=== PATIENT | female | born 1965 | race Caucasian/White ===

== ENCOUNTER 2021-10-31 16:00 | Inpatient (IN) | payer MEDICAID ==
[2021-10-31] MEDS ORDERED: risperiDONE 3 MG TAB PO SCH (22:00)
[2021-10-31] MEDS ORDERED: clonazePAM 0.5 MG TAB PO ONE (22:00)
[2021-10-31] MEDS: busPIRone 10 MG TAB PO SCH (22:17)
[2021-11-01] MEDS: NICOTINE 21 MG/24 HR PATCH TD SCH (10:00)
--- NOTE | 2021-11-01 11:19 | Consultation ---
History of Present Illness - Reason for Consult Consult date: 11/01/21 Medical Management Requesting physician: MICHELLE CARTER - History of Present Illness 55 YO Female with COPD, HTN, GERD, Nicotine Dependence, MING, Schizophrenia, Anemia Chronic Disease admitted to [facility] for psychiatric stabilization. Patient seen and evaluated in the recreation room. Patient denies fever, chills, chest pain, palpitation, skin rash, recent contact, known exposure to COVID-19. No reported nursing events. Patient denies pain. Past History Past Medical History: COPD, hypertension, other (See HPI) Past Surgical History: , hysterectomy Social history: single, smoking. denies: alcohol abuse, prescription drug abuse Family history: hypertension Medications and Allergies Allergies Allergy/AdvReac Type Severity Reaction Status Date / Time amoxicillin Allergy Intermediate Hives Verified 11/01/21 03:28 Home Medications Medication Instructions Recorded Confirmed Last Taken Type Escitalopram [Lexapro] 10 mg PO DAILY 10/31/21 10/31/21 Unknown History Nicotine [Habitrol] 21 mg TD DAILY 10/31/21 10/31/21 Unknown History Pantoprazole [Protonix] 40 mg PO QDAY 10/31/21 10/31/21 Unknown History Polyethylene Glycol 3350 [Miralax] 119 gm PO DAILY PRN 10/31/21 10/31/21 Unknown History busPIRone [Buspar] 10 mg PO BID 10/31/21 10/31/21 Unknown History risperiDONE [RisperDAL] 2 mg PO HS 11/01/21 11/01/21 Unknown History Active Meds: Active Medications Buspirone HCl (Buspirone 10 Mg Tab) 10 mg PO BID [facility] Last Admin: 10/31/21 22:17 Dose: 10 mg Nicotine (Nicotine 21 Mg/24 Hr Patch) 21 mg TD QDAY [facility] Review of Systems Constitutional: no weight loss, no weight gain, no fever, no chills Ears, nose, mouth and throat: no ear pain, no tinnitis, no nose pain, no nasal congestion Breasts: no change in shape, no swelling, no mass Cardiovascular: no chest pain, no palpitations, no rapid/irregular heart beat, no lightheadedness Respiratory: no cough, no excessive sputum, no hemoptysis, no shortness of breath Gastrointestinal: no abdominal pain, no vomiting, no constipation, no change in bowel habits, no hematemesis Genitourinary Female: no pelvic pain, no flank pain, no dysuria, no urinary frequency, no urgency Rectal: no pain, no incontinence, no bleeding Musculoskeletal: no neck stiffness, no neck pain, no shooting arm pain, no low back pain, no shooting leg pain Integumentary: no rash, no pruritis, no redness, no jaundice Neurological: no head injury, no paralysis, no parathesias, no tingling, no seizures, no syncope Psychiatric: anxiety, difficulties concentrating, irritability, mood swings Endocrine: no cold intolerance, no heat intolerance, no polyphagia, no polydipsia, no nocturia Hematologic/Lymphatic: no easy bruising, no easy bleeding Allergic/Immunologic: no urticaria, no allergic rhinitis, no wheezing Exam - Constitutional Vitals: Temp Pulse Resp BP Pulse Ox 97.4 F L 97 H 17 114/55 98 10/31/21 20:25 10/31/21 20:25 10/31/21 20:25 10/31/21 20:25 10/31/21 20:25 General appearance: Present: no acute distress, well-nourished - EENT Eyes: Present: PERRL ENT: hearing intact, clear oral mucosa - Neck Neck: Present: supple, normal ROM - Respiratory Respiratory effort: normal Respiratory: bilateral: CTA - Cardiovascular Heart Sounds: Present: S1 & S2. Absent: rub, click - Extremities Extremities: pulses symmetrical, No edema Peripheral Pulses: within normal limits - Abdominal General gastrointestinal: Present: soft, non-tender, non-distended, normal bowel sounds Female genitourinary: Present: normal - Integumentary Integumentary: Present: clear, warm, dry - Musculoskeletal Musculoskeletal: gait normal, strength equal bilaterally - Psychiatric Psychiatric: appropriate mood/affect, intact judgment & insight - Neurologic Neurologic: CNII-XII intact, moves all extremities Results - Labs CBC & Chem 7: 11/01/21 23:30 11/01/21 23:30 Assessment and Plan - Patient Problems (1) COPD (chronic obstructive pulmonary disease) Current Visit: Yes Status: Acute Plan to address problem: Supportive care, smoking cessation, no acute exacerbation at this time. Supplemental oxygen as clinically indicated. Patient is currently maintaining pulse oximetry in the 90s on room air and is not in need of supplemental oxygen. (2) Schizophrenia Current Visit: Yes Status: Acute Qualifiers: Schizophrenia type: unspecified Qualified Code(s): F20.9 - Schizophrenia, unspecified Plan to address problem: Continue medical management. Supportive care. (3) Anxiety Current Visit: Yes Status: Acute Plan to address problem: Benzodiazepine therapy as clinically indicated. (4) Hypertension Current Visit: Yes Status: Acute Qualifiers: Hypertension type: primary hypertension Qualified Code(s): I10 - Essential (primary) hypertension Plan to address problem: Monitor blood pressure every shift, continue medical management (5) GERD (gastroesophageal reflux disease) Current Visit: Yes Status: Acute Qualifiers: Esophagitis presence: without esophagitis Qualified Code(s): K21.9 - Gastro-esophageal reflux disease without esophagitis Plan to address problem: PPI therapy, supportive care. (6) Advance care planning Current Visit: Yes Status: Acute Plan to address problem: Disease education done, care plan discussed, diagnoses discussed, prognosis discussed, patient is full code. Patient acknowledges understanding agreement with care plan, +30 minutes
[2021-11-01] MEDS ORDERED: POLYETHYLENE GLYCOL 119 GM PO PRN (11:20)
[2021-11-01] MEDS ORDERED: POLYETHYLENE GLYCOL 3350 17 GM POWDER PO PRN (11:39)
--- NOTE | 2021-11-01 13:11 | History and Physical Report ---
GP History & Physical - History of Present Illness Date of admission: 10/31/21 Date of Examination: 11/01/21 Reason for Admission: Danger to self, Failure of Outpatient Treatment, Severe anxiety/depression History of Present Illness: HPI: 55 YO Female with COPD, HTN, GERD, MING, Schizophrenia, Anemia Chronic Disease admitted to [facility] for psychiatric stabilization. Patient seen and evaluated in the recreation room. Patient denies fever, chills, chest pain, palpitation, skin rash, recent contact, known exposure to COVID-19. No reported nursing events. Patient denies pain. The patient was seen today. She is pacing in her room. She tells me that she is having a panic attack and needs her klonopin. The nurse says it was not verified that the patient takes klonopin. The patient says she was admitted into the hospital for hearing voices. I ask her were the voices saying anything negative or harmful, she replies "all kinds of stuff." The patient verbalizes feeling depressed but denies SI/HI. She denies any illicit drug use, alcohol or nicotine. Although her urine was positive for illicit substances. PAST PSYCHIATRIC HISTORY Diagnoses: Denies Suicide attempts or Self-harm behavior: Denies Prior psychiatric hospitalizations: Denies Substance Abuse history: Denies Previous psychiatric medications tried: Denies Outpatient treatment: Denies PAST MEDICAL HISTORY: None reported Family Psychiatric History: None reported or documented SOCIAL HISTORY Living arrangement: states she lives alone Marital status: Single REVIEW OF SYSTEMS Constitutional: Negative for weight loss ENT: Negative for stridor Respiratory: Negative for cough or hemoptysis All other systems reviewed and are negative MENTAL STATUS EXAMINATION General Appearance and Behavior: Age appropriate, good hygiene, wearing appropriate clothes, good eye contact, calm, cooperative Cooperation: Participating/engaged, but Guarded Psychomotor Behavior: Psychomotor normal Mood: Depressed, anxious Affect and affective range: congruent with stated mood Thought Process: circumstantial Thought Content: hallucinations Speech: normal tone and pace Suicidal Ideation: Denies Homicidal Ideation: Denies Hallucinations: Auditory Delusions: None elicited Impulse Control: Limited Insight and Judgment: Limited insight and judgment Memory: Limited Attention: Divided Orientation: Alert, oriented Assessment and Plan Schizophrenia Treatment Plan Patient admitted for inpatient psychiatric evaluation, medication adjustment and close monitoring The patient's behavior, mood, sleep and appetite will be closely monitored. Patient enrolled in individual and group therapeutic sessions and encouraged to attend. Patient provided with a safe and structured environment. Patient's physical health needs will be addressed by the Hospitalist. Hospitalist Consulted Labs including CBC, CMP, Lipid profile and Hemoglobin A1C levels ordered for baseline reference Social Assessment will be completed and the Wrecking Crane Engine Operator will work with patient and family to ensure a suitable and safe disposition Medication adjustment will be made as clinically indicated Restart home meds Increase Buspar 15mg po BID Start Vistaril 50mg po TID Start Doxepoin 10mg po qhs Start Olanzapine 5mg po dailu Usual Wellness Denominational/Preservation The patient agreed on the treatment plan, understood the risk, benefit, alternative treatment, potential consequence of no treatment, and gave informed consent. Estimated days: 7 Post hospital care: primary care provider, psychiatric provider Case staffed with Dr. Knox Legal Status: Voluntary Patient Problems: Current Active Problems Advance care planning (Acute) Anxiety (Acute) COPD (chronic obstructive pulmonary disease) (Acute) Hypertension (Acute) Schizophrenia (Acute) Reaction to Hospitalization: Accepting Medications and Allergies Allergies Allergy/AdvReac Type Severity Reaction Status Date / Time amoxicillin Allergy Intermediate Hives Verified 11/01/21 03:28 Home Medications Medication Instructions Recorded Confirmed Last Taken Type Escitalopram [Lexapro] 10 mg PO DAILY 10/31/21 10/31/21 Unknown History Nicotine [Habitrol] 21 mg TD DAILY 10/31/21 10/31/21 Unknown History Pantoprazole [Protonix] 40 mg PO QDAY 10/31/21 10/31/21 Unknown History Polyethylene Glycol 3350 [Miralax] 119 gm PO DAILY PRN 10/31/21 10/31/21 Unknown History busPIRone [Buspar] 10 mg PO BID 10/31/21 10/31/21 Unknown History risperiDONE [RisperDAL] 2 mg PO HS 11/01/21 11/01/21 Unknown History Active Meds: Active Medications Buspirone HCl (Buspirone 10 Mg Tab) 10 mg PO BID [facility] Last Admin: 10/31/21 22:17 Dose: 10 mg Nicotine (Nicotine 21 Mg/24 Hr Patch) 21 mg TD QDAY [facility] Pantoprazole Sodium (Pantoprazole 40 Mg Tab) 40 mg PO QDAY [facility] Polyethylene Glycol (Polyethylene Glycol 3350 17 Gm Powder) 17 gm PO QDAY PRN PRN Reason: Constipation Results - Results Labs/Vitals: Last Vital Signs Temp 97.4 F L 10/31/21 20:25 Pulse 97 H 10/31/21 20:25 Resp 17 10/31/21 20:25 BP 114/55 10/31/21 20:25 Pulse Ox 98 10/31/21 20:25 Physical Examination - Constitutional Vitals: Vital Signs Temp Pulse Resp BP Pulse Ox 97.4 F L 97 H 17 114/55 98 10/31/21 20:25 10/31/21 20:25 10/31/21 20:25 10/31/21 20:25 10/31/21 20:25 Temperature -Last 24 Hours Temperature 97.4 F Mental Status Exam - Vital signs Last Vital Signs Temp 97.4 F L 10/31/21 20:25 Pulse 97 H 10/31/21 20:25 Resp 17 10/31/21 20:25 BP 114/55 10/31/21 20:25 Pulse Ox 98 10/31/21 20:25 Physician Certification - Certification Statement Physician Certification Statement: This is an acknowledgement statement that BENITO KOROMA is a 55 year old F who requires inpatient psychiatric admission for treatment which could reasonably be expected to improve the patient's condition for Estimated period of time patient will need to remain in the hospital: [ ] Plan for post-hospital care: [ ]
[2021-11-01] MEDS: ESCITALOPRAM 10 MG TAB PO SCH (15:11)
[2021-11-01] MEDS: busPIRone 10 MG TAB PO SCH ×2 (15:14→21:23)
[2021-11-01] MEDS ORDERED: DOXEPIN 10 MG CAP PO SCH (22:00)
[2021-11-02 00:36] LABS: Basophils % (Auto) 0.8 % (0.0-1.8); Eosinophils # (Auto) 0.2 K/mm3 (0.0-0.4); Hematocrit 34.1 % (30.3-42.9); Hemoglobin 11.5 gm/dl (10.1-14.3); Lymphocytes # (Auto) 1.7 K/mm3 (1.2-5.4); Lymphocytes % (Auto) 31.7 % (13.4-35.0); Mean Corpuscular HGB Conc 34 % (30-34); Mean Corpuscular Volume 89 fl (79-97); Monocytes # (Auto) 0.4 K/mm3 (0.0-0.8); Platelet Count 203 K/mm3 (140-440); Red Blood Count 3.81 M/mm3 (3.65-5.03); Red Cell Distribution Width 12.7 % (13.2-15.2)
[2021-11-02 01:02] LABS: Hepatitis B Surface Antigen Non-Reactive (Negative); Hepatitis C Virus Antibody Non-Reactive (NonReactive)
[2021-11-02 03:16] LABS: Alanine Aminotransferase 12 units/L (7-56); Albumin 4.4 g/dL (3.9-5); BUN/Creatinine Ratio 38; Blood Urea Nitrogen 34 mg/dL (7-17); Calcium 9.8 mg/dL (8.4-10.2); Chol/HDL Ratio 3.54 %; HDL Cholesterol 51 mg/dL (40-59); Hemolysis Index 7; LDL Cholesterol,Direct 119 mg/dL (50-130)
[2021-11-02] MEDS: PANTOPRAZOLE 40 MG TAB PO SCH (09:04)
[2021-11-02] MEDS: busPIRone 10 MG TAB PO SCH ×2 (09:05→21:24)
[2021-11-02] MEDS: NICOTINE 21 MG/24 HR PATCH TD SCH (09:05)
[2021-11-02] MEDS: ESCITALOPRAM 10 MG TAB PO SCH (09:05)
--- NOTE | 2021-11-02 09:48 | Progress Note ---
Subjective Date of service: 11/02/21 Subjective Comment: 11/02/21: The patient seen at breakfast. She is calm and oriented x3. The patient complains of difficulty sleeping stating she feels tired and drained. She denies any current suicidal/homicidal ideation and denies hallucinations. PAST PSYCHIATRIC HISTORY Diagnoses: Denies Suicide attempts or Self-harm behavior: Denies Prior psychiatric hospitalizations: Denies Substance Abuse history: Denies Previous psychiatric medications tried: Denies Outpatient treatment: Denies PAST MEDICAL HISTORY: None reported Family Psychiatric History: None reported or documented SOCIAL HISTORY Living arrangement: states she lives alone Marital status: Single REVIEW OF SYSTEMS Constitutional: Negative for weight loss ENT: Negative for stridor Respiratory: Negative for cough or hemoptysis All other systems reviewed and are negative MENTAL STATUS EXAMINATION General Appearance and Behavior: Age appropriate, good hygiene, wearing appropriate clothes, good eye contact, calm, cooperative Cooperation: Participating/engaged, but Guarded Psychomotor Behavior: Psychomotor normal Mood: Depressed Affect and affective range: congruent with stated mood Thought Process: Goal directed Thought Content: Reality oriented Speech: normal tone and pace Suicidal Ideation: Denies Homicidal Ideation: Denies Hallucinations: Denies Delusions: None elicited Impulse Control: Limited Insight and Judgment: Limited insight and judgment Memory: Limited Attention: Divided Orientation: Alert, orientedx3 Assessment and Plan Schizophrenia Treatment Plan Patient admitted for inpatient psychiatric evaluation, medication adjustment and close monitoring The patient's behavior, mood, sleep and appetite will be closely monitored. Patient enrolled in individual and group therapeutic sessions and encouraged to attend. Patient provided with a safe and structured environment. Patient's physical health needs will be addressed by the Hospitalist. Hospitalist Consulted Labs including CBC, CMP, Lipid profile and Hemoglobin A1C levels ordered for baseline reference Social Assessment will be completed and the Furniture Maker will work with patient and family to ensure a suitable and safe disposition Medication adjustment will be made as clinically indicated Restart home meds Start Remeron 15mg po QHS Continue Buspar 15mg po BID continue Vistaril 50mg po TID Continue Olanzapine 5mg po daily Usual Wellness Islam/Preservation The patient agreed on the treatment plan, understood the risk, benefit, alternative treatment, potential consequence of no treatment, and gave informed consent. Estimated days: 6 Post hospital care: primary care provider, psychiatric provider Case staffed with Dr. Knox Legal Status: Voluntary Patient Problems: Current Active Problems Advance care planning (Acute) Anxiety (Acute) COPD (chronic obstructive pulmonary disease) (Acute) Hypertension (Acute) Schizophrenia (Acute) Reaction to Hospitalization: Accepting Medications and Allergies Medications and Allergies Allergies Allergy/AdvReac Type Severity Reaction Status Date / Time amoxicillin Allergy Intermediate Hives Verified 11/01/21 03:28 Home Medications Medication Instructions Recorded Confirmed Last Taken Type Escitalopram [Lexapro] 10 mg PO DAILY 10/31/21 10/31/21 Unknown History Nicotine [Habitrol] 21 mg TD DAILY 10/31/21 10/31/21 Unknown History Pantoprazole [Protonix] 40 mg PO QDAY 10/31/21 10/31/21 Unknown History Polyethylene Glycol 3350 [Miralax] 119 gm PO DAILY PRN 10/31/21 10/31/21 Unknown History busPIRone [Buspar] 10 mg PO BID 10/31/21 10/31/21 Unknown History risperiDONE [RisperDAL] 2 mg PO HS 11/01/21 11/01/21 Unknown History Active Meds: Active Medications Buspirone HCl (Buspirone 10 Mg Tab) 15 mg PO BID [facility] Last Admin: 11/02/21 09:05 Dose: 15 mg Doxepin HCl (Doxepin 10 Mg Cap) 10 mg PO QHS [facility] Last Admin: 11/01/21 21:24 Dose: 10 mg Escitalopram Oxalate (Escitalopram 10 Mg Tab) 10 mg PO DAILY [facility] Last Admin: 11/02/21 09:05 Dose: 10 mg Hydroxyzine Pamoate (Hydroxyzine Pamoate 50 Mg Cap) 50 mg PO TID PRN PRN Reason: Anxiety Last Admin: 11/01/21 23:32 Dose: 50 mg Melatonin (Melatonin 5 Mg Tab) 5 mg PO QHS PRN PRN Reason: Sleep Nicotine (Nicotine 21 Mg/24 Hr Patch) 21 mg TD QDAY [facility] Last Admin: 11/02/21 09:05 Dose: 21 mg Olanzapine (Olanzapine 5 Mg Tab) 5 mg PO QDAY [facility] Last Admin: 11/02/21 09:04 Dose: 5 mg Pantoprazole Sodium (Pantoprazole 40 Mg Tab) 40 mg PO QDAY [facility] Last Admin: 11/02/21 09:04 Dose: 40 mg Polyethylene Glycol (Polyethylene Glycol 3350 17 Gm Powder) 17 gm PO QDAY PRN PRN Reason: Constipation Results - Results Labs/Vitals: Laboratory Last Values WBC 5.4 K/mm3 (4.5-11.0) 11/01/21: RBC 3.81 M/mm3 (3.65-5.03) 11/01/21: Hgb 11.5 gm/dl (10.1-14.3) 11/01/21: Hct 34.1 % (30.3-42.9) 11/01/21: MCV 89 fl (79-97) 11/01/21: MCH 30 pg (28-32) 11/01/21: MCHC 34 % (30-34) 11/01/21: RDW 12.7 % (13.2-15.2) L 11/01/21: Plt Count 203 K/mm3 (140-440) 11/01/21: Lymph % (Auto) 31.7 % (13.4-35.0) 11/01/21: Cata[place] % (Auto) 7.0 % (0.0-7.3) 11/01/21: Eos % (Auto) 3.0 % (0.0-4.3) 11/01/21: Baso % (Auto) 0.8 % (0.0-1.8) 11/01/21 Lymph # (Auto) 1.7 K/mm3 (1.2-5.4) 11/01/21: Cata[place] # (Auto) 0.4 K/mm3 (0.0-0.8) 11/01/21: Eos # (Auto) 0.2 K/mm3 (0.0-0.4) 11/01/21: Baso # (Auto) 0.0 K/mm3 (0.0-0.1) 11/01/21: Seg Neutrophils % 57.5 % (40.0-70.0) 11/01/21: Seg Neutrophils # 3.1 K/mm3 (1.8-7.7) 11/01/21: Sodium 140 mmol/L (137-145) 11/01/21: Potassium 4.6 mmol/L (3.6-5.0) 11/01/21: Chloride 101.5 mmol/L (98-107) 11/01/21 23: Carbon Dioxide 24 mmol/L (22-30) 11/01/21 23: Anion Gap 19 mmol/L 11/01/21 23:30 BUN 34 mg/dL (7-17) H 11/01/21 23: Creatinine 0.9 mg/dL (0.6-1.2) 11/01/21: Estimated GFR > 60 ml/min 11/01/21: BUN/Creatinine Ratio 38 % 11/01/21: Glucose 103 mg/dL (65-100) H 11/01/21 23: Hemoglobin A1c 5.4 % (4-6) 11/01/21: Calcium 9.8 mg/dL (8.4-10.2) 11/01/21: Total Bilirubin 0.20 mg/dL (0.1-1.2) 11/01/21: AST 18 units/L (5-40) 11/01/21: ALT 12 units/L (7-56) 11/01/21: Alkaline Phosphatase 31 units/L (35-129) L 11/01/21: Total Protein 6.6 g/dL (6.3-8.2) 11/01/21: Albumin 4.4 g/dL (3.9-5) 11/01/21: Albumin/Globulin Ratio 2.0 % 11/01/21: Triglycerides 98 mg/dL (2-149) 11/01/21: Cholesterol 181 mg/dL (50-199) 11/01/21: LDL Cholesterol Direct 119 mg/dL (50-130) 11/01/21: HDL Cholesterol 51 mg/dL (40-59) 11/01/21: Cholesterol/HDL Ratio 3.54 % 11/01/21: TSH 0.147 mlU/mL (0.270-4.200) L 11/01/21: Hepatitis A IgM Ab Non-reactive (NonReactive) 11/01/21 Hep Bs Antigen Non-reactive (Negative) 11/01/21 Hep B Core IgM Ab Non-reactive (NonReactive) 03/17/22 23:30 Hepatitis C Antibody Non-reactive (NonReactive) 11/01/21 23:30 Last Vital Signs Temp 99.7 F H 11/01/21 19:36 Pulse 103 H 11/01/21 19:36 Resp 20 11/01/21 19:36 BP 98/68 11/01/21 19:36 Pulse Ox 98 11/01/21 19:36
[2021-11-02] MEDS ORDERED: NICOTINE 21 MG/24 HR PATCH TD SCH (10:00)
--- NOTE | 2021-11-02 20:59 | Progress Note ---
Assessment and Plan - Patient Problems (1) COPD (chronic obstructive pulmonary disease) Current Visit: Yes Status: Acute Plan to address problem: Supportive care, smoking cessation, no acute exacerbation at this time. Supplemental oxygen as clinically indicated. Patient is currently maintaining pulse oximetry in the 90s on room air and is not in need of supplemental oxygen. (2) Schizophrenia Current Visit: Yes Status: Acute Qualifiers: Schizophrenia type: unspecified Qualified Code(s): F20.9 - Schizophrenia, unspecified Plan to address problem: Continue medical management. Supportive care. (3) Anxiety Current Visit: Yes Status: Acute Plan to address problem: Benzodiazepine therapy as clinically indicated. (4) Hypertension Current Visit: Yes Status: Acute Qualifiers: Hypertension type: primary hypertension Qualified Code(s): I10 - Essential (primary) hypertension Plan to address problem: Monitor blood pressure every shift, continue medical management (5) GERD (gastroesophageal reflux disease) Current Visit: Yes Status: Acute Qualifiers: Esophagitis presence: without esophagitis Qualified Code(s): K21.9 - Gastro-esophageal reflux disease without esophagitis Plan to address problem: PPI therapy, supportive care. (6) Advance care planning Current Visit: Yes Status: Acute Plan to address problem: Disease education done, care plan discussed, diagnoses discussed, prognosis dis cussed, patient is full code. Patient acknowledges understanding agreement with care plan, +30 minutes History Interval history: 55 YO Female with COPD, HTN, GERD, Nicotine Dependence, MING, Schizophrenia, Anemia Chronic Disease admitted to [facility] for psychiatric stabilization. Patient seen and evaluated in the recreation room. No reported nursing events. Patient denies pain. Hospitalist Physical - Constitutional Vitals: Temp Pulse Resp BP Pulse Ox 98.3 F 86 17 113/57 96 11/02/21 19:14 11/02/21 19:14 11/02/21 19:14 11/02/21 19:14 11/02/21 19:14 General appearance: Present: no acute distress, well-nourished - EENT Eyes: Present: PERRL, EOM intact - Neck Neck: Present: supple - Respiratory Respiratory effort: normal Respiratory: bilateral: diminished - Cardiovascular Rhythm: regular Heart Sounds: Present: S1 & S2 - Extremities Extremities: no ischemia Peripheral Pulses: within normal limits - Abdominal General gastrointestinal: soft, non-tender, non-distended - Integumentary Integumentary: Present: clear, dry - Psychiatric Psychiatric: appropriate mood/affect, cooperative - Neurologic Neurologic: CNII-XII intact Results - Labs CBC & Chem 7: 11/01/21 23:30 11/01/21 23: Labs: Laboratory Last Values WBC 5.4 K/mm3 (4.5-11.0) 11/01/21 23: RBC 3.81 M/mm3 (3.65-5.03) 11/01/21: Hgb 11.5 gm/dl (10.1-14.3) 11/01/21: Hct 34.1 % (30.3-42.9) 11/01/21: MCV 89 fl (79-97) 11/01/21: MCH 30 pg (28-32) 11/01/21: MCHC 34 % (30-34) 11/01/21: RDW 12.7 % (13.2-15.2) L 11/01/21: Plt Count 203 K/mm3 (140-440) 11/01/21 23: Lymph % (Auto) 31.7 % (13.4-35.0) 11/01/21 23: [place] % (Auto) 7.0 % (0.0-7.3) 11/01/21: Eos % (Auto) 3.0 % (0.0-4.3) 11/01/21: Baso % (Auto) 0.8 % (0.0-1.8) 11/01/21: Lymph # (Auto) 1.7 K/mm3 (1.2-5.4) 11/01/21: [place] # (Auto) 0.4 K/mm3 (0.0-0.8) 11/01/21: Eos # (Auto) 0.2 K/mm3 (0.0-0.4) 11/01/21: Baso # (Auto) 0.0 K/mm3 (0.0-0.1) 11/01/21 23: Seg Neutrophils % 57.5 % (40.0-70.0) 11/01/21: Seg Neutrophils # 3.1 K/mm3 (1.8-7.7) 11/01/21 23:30 Sodium 140 mmol/L (137-145) 11/01/21 23:30 Potassium 4.6 mmol/L (3.6-5.0) 11/01/21 23: Chloride 101.5 mmol/L (98-107) 11/01/21 23: Carbon Dioxide 24 mmol/L (22-30) 11/01/21: Anion Gap 19 mmol/L 11/01/21 23:30 BUN 34 mg/dL (7-17) H 11/01/21 23:30 Creatinine 0.9 mg/dL (0.6-1.2) 11/01/21 23:30 Estimated GFR > 60 ml/min 11/01/21: BUN/Creatinine Ratio 38 % 11/01/21: Glucose 103 mg/dL (65-100) H 11/01/21 23:30 Hemoglobin A1c 5.4 % (4-6) 11/01/21: Calcium 9.8 mg/dL (8.4-10.2) 11/01/21 23: Total Bilirubin 0.20 mg/dL (0.1-1.2) 11/01/21 23:30 AST 18 units/L (5-40) 11/01/21:30 ALT 12 units/L (7-56) 11/01/21: Alkaline Phosphatase 31 units/L (35-129) L 11/01/21:30 Total Protein 6.6 g/dL (6.3-8.2) 11/01/21: Albumin 4.4 g/dL (3.9-5) 11/01/21 23: Albumin/Globulin Ratio 2.0 % 11/01/21 23:30 Triglycerides 98 mg/dL (2-149) 11/01/21 23:30 Cholesterol 181 mg/dL (50-199) 11/01/21 23:30 LDL Cholesterol Direct 119 mg/dL (50-130) 11/01/21 23:30 HDL Cholesterol 51 mg/dL (40-59) 11/01/21 23:30 Cholesterol/HDL Ratio 3.54 % 11/01/21: TSH 0.147 mlU/mL (0.270-4.200) L 11/01/21 23:30 Hepatitis A IgM Ab Non-reactive (NonReactive) 11/01/21 23:30 Hep Bs Antigen Non-reactive (Negative) 11/01/21 23:30 Hep B Core IgM Ab Non-reactive (NonReactive) 11/01/21 23:30 Hepatitis C Antibody Non-reactive (NonReactive) 11/01/21 23:30 Harris/IV: Voiding Method Toilet Active Medications - Current Medications Current Medications: Generic Name Dose Route Start Last Admin Trade Name Freq PRN Reason Stop Dose Admin Buspirone HCl 15 mg 11/01/21 22:00 11/02/21 09:05 Buspirone 10 Mg Tab PO 15 mg BID GISEL Administration Escitalopram Oxalate 10 mg 11/01/21 14:00 11/02/21 09:05 Escitalopram 10 Mg Tab PO 10 mg DAILY GISEL Administration Hydroxyzine Pamoate 50 mg 11/01/21 13:18 11/01/21 23:32 Hydroxyzine Pamoate 50 Mg Cap PO 50 mg TID PRN Administration Anxiety Melatonin 5 mg 11/01/21 23:20 Melatonin 5 Mg Tab PO QHS PRN Sleep Mirtazapine 15 mg 11/02/21 22:00 Mirtazapine 15 Mg Tab PO QHS GISEL Nicotine 21 mg 11/01/21 10:00 11/02/21 09:05 Nicotine 21 Mg/24 Hr Patch TD 21 mg QDAY GISEL Administration Olanzapine 5 mg 11/01/21 14:00 11/02/21 09:04 Olanzapine 5 Mg Tab PO 5 mg QDAY GISEL Administration Pantoprazole Sodium 40 mg 11/02/21 10:00 11/02/21 09:04 Pantoprazole 40 Mg Tab PO 40 mg QDAY GISEL Administration Polyethylene Glycol 17 gm 11/01/21 11:39 Polyethylene Glycol 3350 17 Gm Powder PO QDAY PRN Constipation
--- NOTE | 2021-11-02 21:01 | Progress Note ---
Assessment and Plan - Patient Problems (1) COPD (chronic obstructive pulmonary disease) Current Visit: Yes Status: Acute Plan to address problem: Supportive care, smoking cessation, no acute exacerbation at this time. Supplemental oxygen as clinically indicated. Patient is currently maintaining pulse oximetry in the 90s on room air and is not in need of supplemental oxygen. (2) Schizophrenia Current Visit: Yes Status: Acute Qualifiers: Schizophrenia type: unspecified Qualified Code(s): F20.9 - Schizophrenia, unspecified Plan to address problem: Continue medical management. Supportive care. (3) Anxiety Current Visit: Yes Status: Acute Plan to address problem: Benzodiazepine therapy as clinically indicated. (4) Hypertension Current Visit: Yes Status: Acute Qualifiers: Hypertension type: primary hypertension Qualified Code(s): I10 - Essential (primary) hypertension Plan to address problem: Monitor blood pressure every shift, continue medical management (5) GERD (gastroesophageal reflux disease) Current Visit: Yes Status: Acute Qualifiers: Esophagitis presence: without esophagitis Qualified Code(s): K21.9 - Gastro-esophageal reflux disease without esophagitis Plan to address problem: PPI therapy, supportive care. (6) Advance care planning Current Visit: Yes Status: Acute Plan to address problem: Disease education done, care plan discussed, diagnoses discussed, prognosis dis cussed, patient is full code. Patient acknowledges understanding agreement with care plan, +30 minutes History Interval history: 55 YO Female with COPD, HTN, GERD, Nicotine Dependence, MING, Schizophrenia, Anemia Chronic Disease admitted to [facility] for psychiatric stabilization. Patient seen and evaluated in the recreation room. No reported nursing events. Patient denies pain. Hospitalist Physical - Constitutional Vitals: Temp Pulse Resp BP Pulse Ox 98.3 F 86 17 113/57 96 11/02/21 19:14 11/02/21 19:14 11/02/21 19:14 11/02/21 19:14 11/02/21 19:14 General appearance: Present: no acute distress, well-nourished - EENT Eyes: Present: PERRL ENT: hearing intact - Neck Neck: Present: supple - Respiratory Respiratory effort: normal Respiratory: bilateral: diminished - Cardiovascular Rhythm: regular Heart Sounds: Present: S1 & S2 - Extremities Extremities: no ischemia Peripheral Pulses: within normal limits - Abdominal General gastrointestinal: non-tender, non-distended - Integumentary Integumentary: Present: clear, dry - Psychiatric Psychiatric: cooperative - Neurologic Neurologic: CNII-XII intact Results - Labs CBC & Chem 7: 11/01/21 23:30 11/01/21 23: Labs: Laboratory Last Values WBC 5.4 K/mm3 (4.5-11.0) 11/01/21 23: RBC 3.81 M/mm3 (3.65-5.03) 11/01/21 23: Hgb 11.5 gm/dl (10.1-14.3) 11/01/21 23: Hct 34.1 % (30.3-42.9) 11/01/21 23: MCV 89 fl (79-97) 11/01/21 23: MCH 30 pg (28-32) 11/01/21: MCHC 34 % (30-34) 11/01/21 23: RDW 12.7 % (13.2-15.2) L 11/01/21: Plt Count 203 K/mm3 (140-440) 11/01/21 23: Lymph % (Auto) 31.7 % (13.4-35.0) 11/01/21 23:30 [place] % (Auto) 7.0 % (0.0-7.3) 11/01/21 23: Eos % (Auto) 3.0 % (0.0-4.3) 11/01/21 23: Baso % (Auto) 0.8 % (0.0-1.8) 11/01/21: Lymph # (Auto) 1.7 K/mm3 (1.2-5.4) 11/01/21 23: [place] # (Auto) 0.4 K/mm3 (0.0-0.8) 11/01/21 23: Eos # (Auto) 0.2 K/mm3 (0.0-0.4) 11/01/21 23: Baso # (Auto) 0.0 K/mm3 (0.0-0.1) 11/01/21 23: Seg Neutrophils % 57.5 % (40.0-70.0) 11/01/21: Seg Neutrophils # 3.1 K/mm3 (1.8-7.7) 11/01/21 23:30 Sodium 140 mmol/L (137-145) 11/01/21 23:30 Potassium 4.6 mmol/L (3.6-5.0) 11/01/21 23: Chloride 101.5 mmol/L (98-107) 11/01/21 23:30 Carbon Dioxide 24 mmol/L (22-30) 11/01/21 23: Anion Gap 19 mmol/L 11/01/21 23:30 BUN 34 mg/dL (7-17) H 11/01/21 23:30 Creatinine 0.9 mg/dL (0.6-1.2) 11/01/21 23:30 Estimated GFR > 60 ml/min 11/01/21 23: BUN/Creatinine Ratio 38 % 11/01/21: Glucose 103 mg/dL (65-100) H 11/01/21 23:30 Hemoglobin A1c 5.4 % (4-6) 11/01/21 23: Calcium 9.8 mg/dL (8.4-10.2) 11/01/21 23: Total Bilirubin 0.20 mg/dL (0.1-1.2) 11/01/21 23:30 AST 18 units/L (5-40) 11/01/21 23:30 ALT 12 units/L (7-56) 11/01/21: Alkaline Phosphatase 31 units/L (35-129) L 11/01/21 23:30 Total Protein 6.6 g/dL (6.3-8.2) 11/01/21: Albumin 4.4 g/dL (3.9-5) 11/01/21: Albumin/Globulin Ratio 2.0 % 11/01/21 23:30 Triglycerides 98 mg/dL (2-149) 11/01/21 23:30 Cholesterol 181 mg/dL (50-199) 11/01/21 23:30 LDL Cholesterol Direct 119 mg/dL (50-130) 11/01/21 23: HDL Cholesterol 51 mg/dL (40-59) 11/01/21 23:30 Cholesterol/HDL Ratio 3.54 % 11/01/21 23:30 TSH 0.147 mlU/mL (0.270-4.200) L 11/01/21 23:30 Hepatitis A IgM Ab Non-reactive (NonReactive) 11/01/21 23:30 Hep Bs Antigen Non-reactive (Negative) 11/01/21 23:30 Hep B Core IgM Ab Non-reactive (NonReactive) 11/01/21 23:30 Hepatitis C Antibody Non-reactive (NonReactive) 11/01/21 23:30 Harris/IV: Voiding Method Toilet Active Medications - Current Medications Current Medications: Generic Name Dose Route Start Last Admin Trade Name Freq PRN Reason Stop Dose Admin Buspirone HCl 15 mg 11/01/21 22:00 11/02/21 09:05 Buspirone 10 Mg Tab PO 15 mg BID GISEL Administration Escitalopram Oxalate 10 mg 11/01/21 14:00 11/02/21 09:05 Escitalopram 10 Mg Tab PO 10 mg DAILY GISEL Administration Hydroxyzine Pamoate 50 mg 11/01/21 13:18 11/01/21 23:32 Hydroxyzine Pamoate 50 Mg Cap PO 50 mg TID PRN Administration Anxiety Melatonin 5 mg 11/01/21 23:20 Melatonin 5 Mg Tab PO QHS PRN Sleep Mirtazapine 15 mg 11/02/21 22:00 Mirtazapine 15 Mg Tab PO QHS GISEL Nicotine 21 mg 11/01/21 10:00 11/02/21 09:05 Nicotine 21 Mg/24 Hr Patch TD 21 mg QDAY GISEL Administration Olanzapine 5 mg 11/01/21 14:00 11/02/21 09:04 Olanzapine 5 Mg Tab PO 5 mg QDAY GISEL Administration Pantoprazole Sodium 40 mg 11/02/21 10:00 11/02/21 09:04 Pantoprazole 40 Mg Tab PO 40 mg QDAY GISEL Administration Polyethylene Glycol 17 gm 11/01/21 11:39 Polyethylene Glycol 3350 17 Gm Powder PO QDAY PRN Constipation
[2021-11-02] MEDS: MIRTAZAPINE 15 MG TAB PO SCH (21:25)
[2021-11-02] MEDS: MELATONIN 5 MG TAB PO PRN (23:17)
--- NOTE | 2021-11-03 08:38 | Progress Note ---
Subjective Date of service: 11/03/21 Subjective Comment: 11/03/21: The patient was sleep and this senior mortgage underwriter woke her up with the patient stating " I did not get no sleep." The patient seems to be drug seeking. She denies any current suicidal/homicidal ideation and denies hallucinations. Per nurse, " Overnight the patient rested quietly. She slept 8 hours." 11/02/21: The patient seen at breakfast. She is calm and oriented x3. The patient complains of difficulty sleeping stating she feels tired and drained. She denies any current suicidal/homicidal ideation and denies hallucinations. PAST PSYCHIATRIC HISTORY Diagnoses: Denies Suicide attempts or Self-harm behavior: Denies Prior psychiatric hospitalizations: Denies Substance Abuse history: Denies Previous psychiatric medications tried: Denies Outpatient treatment: Denies PAST MEDICAL HISTORY: None reported Family Psychiatric History: None reported or documented SOCIAL HISTORY Living arrangement: states she lives alone Marital status: Single REVIEW OF SYSTEMS Constitutional: Negative for weight loss ENT: Negative for stridor Respiratory: Negative for cough or hemoptysis All other systems reviewed and are negative MENTAL STATUS EXAMINATION General Appearance and Behavior: Age appropriate, good hygiene, wearing appropriate clothes, good eye contact, calm, cooperative Cooperation: Participating/engaged, but Guarded Psychomotor Behavior: Psychomotor normal Mood: Depressed Affect and affective range: congruent with stated mood Thought Process: Goal directed Thought Content: Reality oriented Speech: normal tone and pace Suicidal Ideation: Denies Homicidal Ideation: Denies Hallucinations: Denies Delusions: None elicited Impulse Control: Limited Insight and Judgment: Limited insight and judgment Memory: Limited Attention: Divided Orientation: Alert, orientedx3 Assessment and Plan Schizophrenia Treatment Plan Patient admitted for inpatient psychiatric evaluation, medication adjustment and close monitoring The patient's behavior, mood, sleep and appetite will be closely monitored. Patient enrolled in individual and group therapeutic sessions and encouraged to attend. Patient provided with a safe and structured environment. Patient's physical health needs will be addressed by the Hospitalist. Hospitalist Consulted Labs including CBC, CMP, Lipid profile and Hemoglobin A1C levels ordered for baseline reference Social Assessment will be completed and the Systems Integration Analyst will work with patie nt and family to ensure a suitable and safe disposition Medication adjustment will be made as clinically indicated Restart home meds Start Remeron 15mg po QHS Continue Buspar 15mg po BID continue Vistaril 50mg po TID Continue Olanzapine 5mg po daily Usual Wellness Jainism/Preservation The patient agreed on the treatment plan, understood the risk, benefit, alt ernative treatment, potential consequence of no treatment, and gave informed consent. Estimated days: 6 Post hospital care: primary care provider, psychiatric provider Case staffed with Dr. Knox Legal Status: Voluntary Patient Problems: Current Active Problems Advance care planning (Acute) Anxiety (Acute) COPD (chronic obstructive pulmonary disease) (Acute) Hypertension (Acute) Schizophrenia (Acute) Reaction to Hospitalization: Accepting Medications and Allergies Medications and Allergies Allergies Allergy/AdvReac Type Severity Reaction Status Date / Time amoxicillin Allergy Intermediate Hives Verified 11/01/21 03:28 Home Medications Medication Instructions Recorded Confirmed Last Taken Type Escitalopram [Lexapro] 10 mg PO DAILY 10/31/21 10/31/21 Unknown History Nicotine [Habitrol] 21 mg TD DAILY 10/31/21 10/31/21 Unknown History Pantoprazole [Protonix] 40 mg PO QDAY 10/31/21 10/31/21 Unknown History Polyethylene Glycol 3350 [Miralax] 119 gm PO DAILY PRN 10/31/21 10/31/21 Unknown History busPIRone [Buspar] 10 mg PO BID 10/31/21 10/31/21 Unknown History risperiDONE [RisperDAL] 2 mg PO HS 11/01/21 11/01/21 Unknown History Active Meds: Active Medications Buspirone HCl (Buspirone 10 Mg Tab) 15 mg PO BID [facility] Last Admin: 11/02/21 21:24 Dose: 15 mg Escitalopram Oxalate (Escitalopram 10 Mg Tab) 10 mg PO DAILY [facility] Last Admin: 11/02/21 09:05 Dose: 10 mg Hydroxyzine Pamoate (Hydroxyzine Pamoate 50 Mg Cap) 50 mg PO TID PRN PRN Reason: Anxiety Last Admin: 11/02/21 23:17 Dose: 50 mg Melatonin (Melatonin 5 Mg Tab) 5 mg PO QHS PRN PRN Reason: Sleep Last Admin: 11/02/21 23:17 Dose: 5 mg Mirtazapine (Mirtazapine 15 Mg Tab) 15 mg PO QHS [facility] Last Admin: 11/02/21 21:25 Dose: 15 mg Nicotine (Nicotine 21 Mg/24 Hr Patch) 21 mg TD QDAY [facility] Last Admin: 11/02/21 09:05 Dose: 21 mg Olanzapine (Olanzapine 5 Mg Tab) 5 mg PO QDAY [facility] Last Admin: 11/02/21 09:04 Dose: 5 mg Pantoprazole Sodium (Pantoprazole 40 Mg Tab) 40 mg PO QDAY [facility] Last Admin: 11/02/21 09:04 Dose: 40 mg Polyethylene Glycol (Polyethylene Glycol 3350 17 Gm Powder) 17 gm PO QDAY PRN PRN Reason: Constipation Results - Results Labs/Vitals: Laboratory Last Values WBC 5.4 K/mm3 (4.5-11.0) 11/01/21 23:30 RBC 3.81 M/mm3 (3.65-5.03) 11/01/21 23:30 Hgb 11.5 gm/dl (10.1-14.3) 11/01/21 23: Hct 34.1 % (30.3-42.9) 11/01/21 23:30 MCV 89 fl (79-97) 11/01/21 23: MCH 30 pg (28-32) 11/01/21 23: MCHC 34 % (30-34) 11/01/21 23:30 RDW 12.7 % (13.2-15.2) L 11/01/21 23:30 Plt Count 203 K/mm3 (140-440) 11/01/21 23:30 Lymph % (Auto) 31.7 % (13.4-35.0) 11/01/21 23:30 [place] % (Auto) 7.0 % (0.0-7.3) 11/01/21 23: Eos % (Auto) 3.0 % (0.0-4.3) 11/01/21 23: Baso % (Auto) 0.8 % (0.0-1.8) 11/01/21 23:30 Lymph # (Auto) 1.7 K/mm3 (1.2-5.4) 11/01/21 23:30 [place] # (Auto) 0.4 K/mm3 (0.0-0.8) 11/01/21 23:30 Eos # (Auto) 0.2 K/mm3 (0.0-0.4) 11/01/21 23:30 Baso # (Auto) 0.0 K/mm3 (0.0-0.1) 11/01/21 23:30 Seg Neutrophils % 57.5 % (40.0-70.0) 11/01/21 23:30 Seg Neutrophils # 3.1 K/mm3 (1.8-7.7) 11/01/21 23:30 Sodium 140 mmol/L (137-145) 11/01/21 23:30 Potassium 4.6 mmol/L (3.6-5.0) 11/01/21 23:30 Chloride 101.5 mmol/L (98-107) 11/01/21 23:30 Carbon Dioxide 24 mmol/L (22-30) 11/01/21 23:30 Anion Gap 19 mmol/L 11/01/21 23:30 BUN 34 mg/dL (7-17) H 11/01/21 23:30 Creatinine 0.9 mg/dL (0.6-1.2) 11/01/21 23:30 Estimated GFR > 60 ml/min 11/01/21 23:30 BUN/Creatinine Ratio 38 % 11/01/21 23:30 Glucose 103 mg/dL (65-100) H 11/01/21 23:30 Hemoglobin A1c 5.4 % (4-6) 11/01/21 23:30 Calcium 9.8 mg/dL (8.4-10.2) 11/01/21 23:30 Total Bilirubin 0.20 mg/dL (0.1-1.2) 11/01/21 23:30 AST 18 units/L (5-40) 11/01/21 23:30 ALT 12 units/L (7-56) 11/01/21 23:30 Alkaline Phosphatase 31 units/L (35-129) L 11/01/21 23:30 Total Protein 6.6 g/dL (6.3-8.2) 11/01/21 23:30 Albumin 4.4 g/dL (3.9-5) 11/01/21 23:30 Albumin/Globulin Ratio 2.0 % 11/01/21 23:30 Triglycerides 98 mg/dL (2-149) 11/01/21 23:30 Cholesterol 181 mg/dL (50-199) 11/01/21 23:30 LDL Cholesterol Direct 119 mg/dL (50-130) 11/01/21 23:30 HDL Cholesterol 51 mg/dL (40-59) 11/01/21 23:30 Cholesterol/HDL Ratio 3.54 % 11/01/21 23:30 TSH 0.147 mlU/mL (0.270-4.200) L 11/01/21 23:30 Hepatitis A IgM Ab Non-reactive (NonReactive) 11/01/21 23:30 Hep Bs Antigen Non-reactive (Negative) 11/01/21 23:30 Hep B Core IgM Ab Non-reactive (NonReactive) 11/01/21 23:30 Hepatitis C Antibody Non-reactive (NonReactive) 11/01/21 23:30 Last Vital Signs Temp 98.3 F 11/02/21 19:14 Pulse 86 11/02/21 19:14 Resp 17 11/02/21 19:14 BP 113/57 11/02/21 19:14 Pulse Ox 96 11/02/21 19:14
[2021-11-03] MEDS: NICOTINE 21 MG/24 HR PATCH TD SCH (09:13)
[2021-11-03] MEDS: busPIRone 10 MG TAB PO SCH ×2 (09:13→21:33)
[2021-11-03] MEDS: PANTOPRAZOLE 40 MG TAB PO SCH (09:13)
[2021-11-03] MEDS: ESCITALOPRAM 10 MG TAB PO SCH (09:13)
[2021-11-03 20:17] VITALS: BP 108/62
--- NOTE | 2021-11-03 20:48 | Progress Note ---
Assessment and Plan - Patient Problems (1) COPD (chronic obstructive pulmonary disease) Current Visit: Yes Status: Acute Plan to address problem: Supportive care, smoking cessation, no acute exacerbation at this time. Supplemental oxygen as clinically indicated. Patient is currently maintaining pulse oximetry in the 90s on room air and is not in need of supplemental oxygen. (2) Schizophrenia Current Visit: Yes Status: Acute Qualifiers: Schizophrenia type: unspecified Qualified Code(s): F20.9 - Schizophrenia, unspecified Plan to address problem: Continue medical management. Supportive care. (3) Anxiety Current Visit: Yes Status: Acute Plan to address problem: Benzodiazepine therapy as clinically indicated. (4) Hypertension Current Visit: Yes Status: Acute Qualifiers: Hypertension type: primary hypertension Qualified Code(s): I10 - Essential (primary) hypertension Plan to address problem: Monitor blood pressure every shift, continue medical management (5) GERD (gastroesophageal reflux disease) Current Visit: Yes Status: Acute Qualifiers: Esophagitis presence: without esophagitis Qualified Code(s): K21.9 - Gastro-esophageal reflux disease without esophagitis Plan to address problem: PPI therapy, supportive care. (6) Advance care planning Current Visit: Yes Status: Acute Plan to address problem: Disease education done, care plan discussed, diagnoses discussed, prognosis dis cussed, patient is full code. Patient acknowledges understanding agreement with care plan, +30 minutes History Interval history: 55 YO Female with COPD, HTN, GERD, Nicotine Dependence, MING, Schizophrenia, Anemia Chronic Disease admitted to [facility] for psychiatric stabilization. Patient seen and evaluated in the recreation room. No reported nursing events. Patient denies pain. Hospitalist Physical - Constitutional Vitals: Temp Pulse Resp BP Pulse Ox 99.7 F H 83 16 108/62 96 11/03/21 19:54 11/03/21 19:54 11/03/21 19:54 11/03/21 19:54 11/03/21 19:54 General appearance: Present: no acute distress, well-nourished - EENT Eyes: Present: PERRL ENT: hearing intact - Neck Neck: Present: supple - Respiratory Respiratory effort: normal Respiratory: bilateral: CTA - Cardiovascular Rhythm: regular - Extremities Extremities: no ischemia Peripheral Pulses: within normal limits - Abdominal General gastrointestinal: soft, non-tender, non-distended - Integumentary Integumentary: Present: clear, dry - Psychiatric Psychiatric: cooperative Results - Labs CBC & Chem 7: 11/01/21 23:30 11/01/21 23: Labs: Laboratory Last Values WBC 5.4 K/mm3 (4.5-11.0) 11/01/21 23: RBC 3.81 M/mm3 (3.65-5.03) 11/01/21 23: Hgb 11.5 gm/dl (10.1-14.3) 11/01/21: Hct 34.1 % (30.3-42.9) 11/01/21 23: MCV 89 fl (79-97) 11/01/21 23: MCH 30 pg (28-32) 11/01/21: MCHC 34 % (30-34) 11/01/21: RDW 12.7 % (13.2-15.2) L 11/01/21: Plt Count 203 K/mm3 (140-440) 11/01/21 23: Lymph % (Auto) 31.7 % (13.4-35.0) 11/01/21: [place] % (Auto) 7.0 % (0.0-7.3) 11/01/21: Eos % (Auto) 3.0 % (0.0-4.3) 11/01/21: Baso % (Auto) 0.8 % (0.0-1.8) 11/01/21: Lymph # (Auto) 1.7 K/mm3 (1.2-5.4) 11/01/21: [place] # (Auto) 0.4 K/mm3 (0.0-0.8) 11/01/21: Eos # (Auto) 0.2 K/mm3 (0.0-0.4) 11/01/21: Baso # (Auto) 0.0 K/mm3 (0.0-0.1) 11/01/21: Seg Neutrophils % 57.5 % (40.0-70.0) 11/01/21: Seg Neutrophils # 3.1 K/mm3 (1.8-7.7) 11/01/21: Sodium 140 mmol/L (137-145) 11/01/21 23: Potassium 4.6 mmol/L (3.6-5.0) 11/01/21 23: Chloride 101.5 mmol/L (98-107) 11/01/21 23: Carbon Dioxide 24 mmol/L (22-30) 11/01/21: Anion Gap 19 mmol/L 11/01/21 23: BUN 34 mg/dL (7-17) H 11/01/21 23: Creatinine 0.9 mg/dL (0.6-1.2) 11/01/21 23: Estimated GFR > 60 ml/min 11/01/21 23: BUN/Creatinine Ratio 38 % 11/01/21: Glucose 103 mg/dL (65-100) H 11/01/21: Hemoglobin A1c 5.4 % (4-6) 11/01/21: Calcium 9.8 mg/dL (8.4-10.2) 11/01/21: Total Bilirubin 0.20 mg/dL (0.1-1.2) 11/01/21 23: AST 18 units/L (5-40) 11/01/21 23: ALT 12 units/L (7-56) 11/01/21: Alkaline Phosphatase 31 units/L (35-129) L 11/01/21: Total Protein 6.6 g/dL (6.3-8.2) 11/01/21: Albumin 4.4 g/dL (3.9-5) 11/01/21: Albumin/Globulin Ratio 2.0 % 11/01/21: Triglycerides 98 mg/dL (2-149) 11/01/21 23: Cholesterol 181 mg/dL (50-199) 11/01/21 23: LDL Cholesterol Direct 119 mg/dL (50-130) 11/01/21: HDL Cholesterol 51 mg/dL (40-59) 11/01/21: Cholesterol/HDL Ratio 3.54 % 11/01/21: TSH 0.147 mlU/mL (0.270-4.200) L 11/01/21: Hepatitis A IgM Ab Non-reactive (NonReactive) 03/17/22 23:30 Hep Bs Antigen Non-reactive (Negative) 11/01/21 23:30 Hep B Core IgM Ab Non-reactive (NonReactive) 11/01/21 23:30 Hepatitis C Antibody Non-reactive (NonReactive) 11/01/21 23:30 Harris/IV: Voiding Method Toilet Active Medications - Current Medications Current Medications: Generic Name Dose Route Start Last Admin Trade Name Freq PRN Reason Stop Dose Admin Buspirone HCl 15 mg 11/01/21 22:00 11/03/21 09:13 Buspirone 10 Mg Tab PO 15 mg BID GISEL Administration Escitalopram Oxalate 10 mg 11/01/21 14:00 11/03/21 09:13 Escitalopram 10 Mg Tab PO 10 mg DAILY GISEL Administration Hydroxyzine [place] 50 mg 11/01/21 13:18 11/02/21 23:17 Hydroxyzine [place] 50 Mg Cap PO 50 mg TID PRN Administration Anxiety Melatonin 5 mg 11/01/21 23:20 11/02/21 23:17 Melatonin 5 Mg Tab PO 5 mg QHS PRN Administration Sleep Mirtazapine 15 mg 11/02/21 22:00 11/02/21 21:25 Mirtazapine 15 Mg Tab PO 15 mg QHS GISEL Administration Nicotine 21 mg 11/01/21 10:00 11/03/21 09:13 Nicotine 21 Mg/24 Hr Patch TD 21 mg QDAY GISEL Administration Olanzapine 5 mg 11/01/21 14:00 11/03/21 09:13 Olanzapine 5 Mg Tab PO 5 mg QDAY GISEL Administration Pantoprazole Sodium 40 mg 11/02/21 10:00 11/03/21 09:13 Pantoprazole 40 Mg Tab PO 40 mg QDAY GISEL Administration Polyethylene Glycol 17 gm 11/01/21 11:39 Polyethylene Glycol 3350 17 Gm Powder PO QDAY PRN Constipation
[2021-11-03] MEDS: MIRTAZAPINE 15 MG TAB PO SCH (21:34)
[2021-11-03] MEDS: MELATONIN 5 MG TAB PO PRN (21:34)
--- NOTE | 2021-11-04 08:27 | Discharge Summary ---
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 The patients mood, cognition, behavior, motivation, compliance to treatment and appreciation on family/social support are improved and stabilized. At the time of discharge, the patient had no suicidal ideas, no homicidal ideas, no aggressive thoughts, no endangering behavior and no debilitating adverse effects. The patient agreed on the treatment plan, understood the risk, benefit, alternative treatment, potential consequence of no treatment, and gave informed consent. Progress Note: 11/03/21: The patient was sleep and this va underwriter woke her up with the patient stating " I did not get no sleep." The patient seems to be drug seeking. She denies any current suicidal/homicidal ideation and denies hallucinations. Per nurse, " Overnight the patient rested quietly. She slept 8 hours." 11/02/21: The patient seen at breakfast. She is calm and oriented x3. The patient complains of difficulty sleeping stating she feels tired and drained. She denies any current suicidal/homicidal ideation and denies hallucinations. Disposition: 30 STILL A PATIENT Allergies/Adverse Reactions: Allergies amoxicillin Allergy (Intermediate, Verified 11/01/21 03:28) Hives Vital Signs: Last Vital Signs Temp 99.7 F H 11/03/21 19:54 Pulse 83 11/03/21 19:54 Resp 16 11/03/21 19:54 BP 108/62 11/03/21 19:54 Pulse Ox 96 11/03/21 19:54 Last Lab: Laboratory Last Values WBC 5.4 K/mm3 (4.5-11.0) 11/01/21 23:30 RBC 3.81 M/mm3 (3.65-5.03) 11/01/21: Hgb 11.5 gm/dl (10.1-14.3) 11/01/21: Hct 34.1 % (30.3-42.9) 11/01/21 23: MCV 89 fl (79-97) 11/01/21: MCH 30 pg (28-32) 11/01/21: MCHC 34 % (30-34) 11/01/21: RDW 12.7 % (13.2-15.2) L 11/01/21: Plt Count 203 K/mm3 (140-440) 11/01/21: Lymph % (Auto) 31.7 % (13.4-35.0) 11/01/21: [place] % (Auto) 7.0 % (0.0-7.3) 11/01/21: Eos % (Auto) 3.0 % (0.0-4.3) 11/01/21: Baso % (Auto) 0.8 % (0.0-1.8) 11/01/21: Lymph # (Auto) 1.7 K/mm3 (1.2-5.4) 11/01/21: [place] # (Auto) 0.4 K/mm3 (0.0-0.8) 11/01/21: Eos # (Auto) 0.2 K/mm3 (0.0-0.4) 11/01/21: Baso # (Auto) 0.0 K/mm3 (0.0-0.1) 11/01/21: Seg Neutrophils % 57.5 % (40.0-70.0) 11/01/21: Seg Neutrophils # 3.1 K/mm3 (1.8-7.7) 11/01/21: Sodium 140 mmol/L (137-145) 11/01/21: Potassium 4.6 mmol/L (3.6-5.0) 11/01/21: Chloride 101.5 mmol/L (98-107) 11/01/21: Carbon Dioxide 24 mmol/L (22-30) 11/01/21: Anion Gap 19 mmol/L 11/01/21 23:30 BUN 34 mg/dL (7-17) H 11/01/21 23: Creatinine 0.9 mg/dL (0.6-1.2) 11/01/21 23: Estimated GFR > 60 ml/min 11/01/21: BUN/Creatinine Ratio 38 % 11/01/21: Glucose 103 mg/dL (65-100) H 11/01/21: Hemoglobin A1c 5.4 % (4-6) 11/01/21: Calcium 9.8 mg/dL (8.4-10.2) 11/01/21: Total Bilirubin 0.20 mg/dL (0.1-1.2) 11/01/21: AST 18 units/L (5-40) 11/01/21: ALT 12 units/L (7-56) 11/01/21: Alkaline Phosphatase 31 units/L (35-129) L 11/01/21: Total Protein 6.6 g/dL (6.3-8.2) 11/01/21: Albumin 4.4 g/dL (3.9-5) 11/01/21: Albumin/Globulin Ratio 2.0 % 11/01/21: Triglycerides 98 mg/dL (2-149) 11/01/21: Cholesterol 181 mg/dL (50-199) 11/01/21: LDL Cholesterol Direct 119 mg/dL (50-130) 11/01/21: HDL Cholesterol 51 mg/dL (40-59) 11/01/21: Cholesterol/HDL Ratio 3.54 % 11/01/21: TSH 0.147 mlU/mL (0.270-4.200) L 11/01/21: Hepatitis A IgM Ab Non-reactive (NonReactive) 11/01/21 Hep Bs Antigen Non-reactive (Negative) 11/01/21 Hep B Core IgM Ab Non-reactive (NonReactive) 11/01/21: Hepatitis C Antibody Non-reactive (NonReactive) 11/01/21 Core Measure Documentation - Palliative Care Palliative Care/ Comfort Measures: Not Applicable - Core Measures Any of the following diagnoses?: none - VTE Discharge Requirements Deep Vein Thrombosis/Pulmonary Embolism Present on Admission: No Exam - Constitutional Vitals: Temp Pulse Resp BP Pulse Ox 99.7 F H 83 16 108/62 96 11/03/21 19:54 11/03/21 19:54 11/03/21 19:54 11/03/21 19:54 11/03/21 19:54 Plan Activity: advance as tolerated Weight Bearing Status: Weight Bear as Tolerated Care Plan Goals: Maintain good and stable mental health. Plan of Treatment: The patient should be compliant with medications, not to use drugs and not to drink alcohol.The patient understands that if suicidal ideas, homicidal ideas, or any endangering thoughts/behavior arise, they should immediately seek for emergent assistance including but not limited to crisis hot line and emergency room. Follow up with outpatient Psychiatrist and PCP within 7 - 14 days of discharge. Follow up with: PRIMARY CARE,MD [Primary Care Provider] - 7 Days Prescriptions: Mirtazapine [Remeron 15mg TAB] 15 mg PO QHS 30 Days #30 tablet busPIRone [Buspar] 15 mg PO BID 30 Days #60 tablet Escitalopram [Lexapro] 10 mg PO DAILY 30 Days #30 tablet hydrOXYzine PAMOATE [Vistaril] 50 mg PO TID PRN 30 Days #90 capsule PRN Reason: Anxiety OLANzapine [ZyPREXA] 5 mg PO QDAY 30 Days #30 tablet
[2021-11-04] MEDS: busPIRone 10 MG TAB PO SCH (09:31)
[2021-11-04] MEDS: ESCITALOPRAM 10 MG TAB PO SCH (09:32)
[2021-11-04] MEDS: NICOTINE 21 MG/24 HR PATCH TD SCH (09:33)
[2021-11-04] MEDS: PANTOPRAZOLE 40 MG TAB PO SCH (09:36)
== END 2021-11-04 11:48 | disposition home or self-care (01) | DRG 885 ==
LOC: UNDOADMIN 16:00 → 3A 16:00 → 5A 21:26
PROVIDERS: ADMIT Psychiatry & Neurology Psychiatry; ATTEND Psychiatry & Neurology Psychiatry
DX: F20.9 Schizophrenia, unspecified (principal); J44.9 Chronic obstructive pulmonary disease, unspecified; I10 Essential (primary) hypertension; K21.9 Gastro-esophageal reflux disease without esophagitis; F39 Unspecified mood [affective] disorder; F41.1 Generalized anxiety disorder; Z90.710 Acquired absence of both cervix and uterus; Z82.49 Family history of ischemic heart disease and other diseases of the circulatory system
CPT/HCPCS: 36415; 80053; 80061; 80074; 83036; 84443; 85025; G0378; Q0177